=== PATIENT | male | born 1985 | race Caucasian/White ===

== ENCOUNTER 2022-07-09 14:57 | Emergency (ER) | payer OTHER ==
[~2022-07-09] VITALS: Ht 170.2 cm; Wt 112.5 kg
[2022-07-09 15:04] VITALS: BP 166/83
--- NOTE | 2022-07-09 15:10 | NUR ---
PT AMB TO ER BED 3
[2022-07-09] MEDS ORDERED: IBUP-2213 PO (15:42)
--- NOTE | 2022-07-09 15:50 | NUR ---
Patient discharged with v/s stable. Written and verbal after care instructions FOR CONCUSSION given and explained. Patient alert, oriented and verbalized understanding of instructions. Ambulatory with steady gait. All questions addressed prior to discharge. ID band removed. Patient advised to follow up with PMD. Rx of MOTRIN given. Opportunity to ask questions provided and answered.
== END 2022-07-09 15:50 | disposition home or self-care (01) ==
LOC: MED 14:57
DX: S06.0X0A Concussion without loss of consciousness, initial encounter (principal); W22.8XXA Striking against or struck by other objects, initial encounter; Y93.89 Activity, other specified; Y92.89 Other specified places as the place of occurrence of the external cause; Y99.8 Other external cause status
CPT/HCPCS: 99283